=== PATIENT | male | born 1960 | race Caucasian/White ===

== ENCOUNTER 2020-05-30 12:41 | Inpatient (IN) | payer BC ==
[~2020-05-30] VITALS: Ht 175.3 cm; Wt 92.1 kg
[2020-05-30 12:44] VITALS: Ht 175.3 cm; Wt 92.1 kg
[2020-05-30 13:26] LABS: BASOPHIL % 0.8 % (0-2); PLATELET COUNT 272 x10^3mcL (130-400); RED CELL DISTRIBUTION WIDTH 13.6 % (11.5-14.5)
[2020-05-30 13:42] LABS: CALCIUM 9.1 mg/dL (8.5-10.1); CARBON DIOXIDE 20.2 mmol/L (21-32); CHLORIDE SERUM 105 mmol/L (98-107); GFR1 > 60 mL/min; GLUCOSE SERUM 102 mg/dL (74-106); POTASSIUM SERUM 3.5 mmol/L (3.5-5.1); SODIUM SERUM 138 mmol/L (136-145)
[2020-05-30 13:46] LABS: ALBUMIN 3.9 g/dL (3.4-5.0); ALKALINE PHOSPHATASE 42 U/L (46-116); ALT/SGPT 36 U/L (16-63); AST/SGOT 20 U/L (15-37); BILIRUBIN TOTAL 0.38 mg/dL (0.20-1.00); HDL CHOLESTEROL 50 mg/dL (40-60); LIPASE 157 IU/L (73-393); TOTAL PROTEIN, SERUM 7.4 g/dL (6.4-8.2); TRIGLYCERIDES 128 mg/dL (<150)
[2020-05-30 13:47] LABS: T3 TOTAL 1.78 ng/mL
[2020-05-30 13:51] LABS: CHOLESTEROL 294 mg/dL (<200); CHOLESTEROL/HDL RATIO 5.9
[2020-05-30 13:58] LABS: FREE T4 1.25 ng/dL (0.76-1.46); FREE THYROXINE INDEX 3.6 ug/dL (1.4-4.5)
[2020-05-30] MEDS ORDERED: TRILIPIX135 M1 PO (14:25)
[2020-05-30] MEDS ORDERED: EFFIENT10 M2 PO (14:25)
[2020-05-30] MEDS ORDERED: FOLPLEX PO (14:26)
[2020-05-30] MEDS ORDERED: CRESTOR20 M1 PO (14:26)
[2020-05-30] MEDS ORDERED: OMEPRAZOLE20 M4 PO (14:26)
[2020-05-30] MEDS ORDERED: ASPIRIN ADULT L81 M5 PO (14:27)
[2020-05-30 15:36] LABS: MAGNESIUM 2.1 mg/dL (1.8-2.4); PHOSPHOROUS 1.4 mg/dL (2.5-4.9)
[2020-05-30] MEDS ORDERED: AMOXICILLIN500 M1 PO (17:39)
[2020-05-30 18:05] VITALS: BP 169/91
[2020-05-30 20:47] VITALS: BP 168/100
[2020-05-31] VITALS: BP 118/72
[2020-05-31 04:00] VITALS: BP 120/72
[2020-05-31 07:02] LABS: BASOPHIL % 0.7 % (0-2); PLATELET COUNT 246 x10^3mcL (130-400); RED CELL DISTRIBUTION WIDTH 13.8 % (11.5-14.5)
[2020-05-31 07:09] LABS: CALCIUM 8.5 mg/dL (8.5-10.1); CARBON DIOXIDE 23.9 mmol/L (21-32); CHLORIDE SERUM 107 mmol/L (98-107); GFR1 > 60 mL/min; GLUCOSE SERUM 91 mg/dL (74-106); POTASSIUM SERUM 3.4 mmol/L (3.5-5.1); SODIUM SERUM 139 mmol/L (136-145)
[2020-05-31 08:35] VITALS: BP 154/83
== END 2020-05-31 10:45 | disposition left against medical advice (07) | DRG 303 ==
LOC: ED 12:41 → DU 14:13
PROVIDERS: Specialist; ADMIT Family Medicine; ATTEND Family Medicine
DX: I25.10 Atherosclerotic heart disease of native coronary artery without angina pectoris (principal); I24.9 Acute ischemic heart disease, unspecified; R07.9 Chest pain, unspecified; I10 Essential (primary) hypertension; Z20.828 Contact with and (suspected) exposure to other viral communicable diseases; E78.5 Hyperlipidemia, unspecified; F12.90 Cannabis use, unspecified, uncomplicated; Z86.74 Personal history of sudden cardiac arrest; Z88.2 Allergy status to sulfonamides; Z79.899 Other long term (current) drug therapy; Z95.818 Presence of other cardiac implants and grafts; I25.2 Old myocardial infarction; Z79.82 Long term (current) use of aspirin; Z79.01 Long term (current) use of anticoagulants; Z72.89 Other problems related to lifestyle
CPT/HCPCS: 83880; 84439; G0378; Q0092